=== PATIENT | female | born 1965 | race Hispanic/Latino ===

== ENCOUNTER 2017-11-01 11:43 | Outpatient (CLI) | payer BC | END 2017-11-01 11:44 | disposition home or self-care (01) | LOC: BICMAMMO 11:43 | PROVIDERS: ATTEND Family Medicine | DX: R10.9 Unspecified abdominal pain (principal); R07.9 Chest pain, unspecified; R10.2 Pelvic and perineal pain; R19.00 Intra-abdominal and pelvic swelling, mass and lump, unspecified site | CPT/HCPCS: 71046; 74018 ==

== ENCOUNTER 2017-11-25 15:15 | Outpatient (CLI) | payer BC | END 2017-11-25 15:16 | disposition home or self-care (01) | LOC: BICMAMMO 15:15 | PROVIDERS: ATTEND Family Medicine | DX: Z12.31 Encounter for screening mammogram for malignant neoplasm of breast (principal) | CPT/HCPCS: 77063; 77067 ==

== ENCOUNTER 2018-08-22 09:30 | Inpatient (IN) | payer BC ==
[2018-08-22 10:01] VITALS: BMI 25.4
[2018-08-23] MEDS ORDERED: CeleCOXIB 100 MG CAP ONE (06:20)
[2018-08-23] MEDS ORDERED: Gabapentin 300 MG CAP ONE (06:20)
[2018-08-23] MEDS ORDERED: Famotidine/PF 20 mg/2ml Vial ONE ×2 (06:21→06:50)
[2018-08-23] MEDS ORDERED: CEFAZOLIN 2 GM/50 ML BAG ONE (06:21)
[2018-08-23] MEDS ORDERED: Fentanyl 100 MCG/2 ML VIAL ONE ×2 (06:50)
[2018-08-23] MEDS ORDERED: Midazolam HCl 2 mg/2 ml Vial ONE (07:13)
[2018-08-23] MEDS ORDERED: Promethazine HCl 25 MG/ML VIAL SLOW IVP PRN (08:28)
[2018-08-23] MEDS ORDERED: Meperidine HCl/PF 25 MG/ML VIAL SLOW IVP PRN (08:28)
[2018-08-23] MEDS ORDERED: HYDROmorphone 2 MG/ML VIAL SLOW IVP PRN (08:28)
[2018-08-23] MEDS ORDERED: Promethazine HCl 25 MG/ML VIAL IM PRN ×2 (08:28→12:53)
[2018-08-23] MEDS ORDERED: Bupivacaine/Epinephrine 0.25% 30 ML VIAL ONE (09:13)
--- NOTE | 2018-08-23 10:21 | PDOC.OP ---
Operative Note - Operative Note Operative Note: Immediate Post Op Note Preop Dx: large fibroid uterus, pain Postop Dx: same Surgeon: Mirza Assist: Vivek Richardson Procedure: JOLIE BSO, On Q Pump placement EBl:250ml Findings: Large fibroid uterus, to above umbilicus, normal tubes and ovaries No complications To PACU for recovery.
[2018-08-23] MEDS ORDERED: Ropivacaine 0.2% 550 ML 750 ML NERVE BLCK SCH (10:30)
[2018-08-23] MEDS ORDERED: ROPIVACAINE HCL NERVE BLCK SCH (11:00)
[2018-08-23] MEDS ORDERED: ADMIXTURE FEE NERVE BLCK SCH (11:00)
[2018-08-23] MEDS ORDERED: Promethazine HCl 25 MG/ML VIAL ONE (11:44)
[2018-08-23] MEDS ORDERED: Ondansetron PF 4 MG/2 ML Vial IVP PRN (12:53)
[2018-08-23] MEDS ORDERED: Zolpidem Tartrate 5 MG TAB PO PRN (12:53)
[2018-08-23] MEDS ORDERED: diphenhydrAMINE 25 MG CAP PO PRN (12:53)
[2018-08-23] MEDS ORDERED: HYDROcodone/Acetaminophen 5/325 mg Tablet PO PRN ×2 (12:53)
[2018-08-23] MEDS ORDERED: Simethicone Chewable 80 MG TAB PO PRN (12:53)
[2018-08-23] MEDS ORDERED: Morphine 2 MG/ML SYRINGE SLOW IVP PRN (12:53)
[2018-08-23] MEDS ORDERED: Bisacodyl 10 MG SUPP PR PRN (12:53)
[2018-08-23] MEDS ORDERED: Ketorolac Tromethamine 30 MG/ML VIAL IVP SCH (13:00)
--- NOTE | 2018-08-23 13:14 | OP ---
DATE OF PROCEDURE: 08/23/2018 PREOPERATIVE DIAGNOSES: 1. Large fibroid uterus. 2. Pelvic pain. POSTOPERATIVE DIAGNOSES: 1. Large fibroid uterus. 2. Pelvic pain. PROCEDURE PERFORMED: Total abdominal hysterectomy with bilateral salpingo-oophorectomy and placement of ON-Q nerve block pump. SPECIAL EFFECTS PERSON: Shira Richardson MD ANESTHESIA: GETA. ESTIMATED BLOOD LOSS: 250 mL. COMPLICATIONS: None. OPERATIVE FINDINGS: 1. Large fibroid uterus extending 3 to 4 cm above the umbilicus filling the pelvis and abdomen. 2. Normal appearing tubes and ovaries. 3. No intra-abdominal adhesive disease. 4. Surgical site hematostatic. DESCRIPTION OF PROCEDURE: The patient was taken back to the OR with IV fluids running. When she was in the OR, she was placed in the dorsal supine position and general anesthesia was obtained. Once the patient was asleep, she was placed in low dorsal lithotomy position and the vagina and the abdomen were prepped and draped in the normal fashion for hysterectomy. Surgeons were gowned and gloved. A midline vertical incision was made from above the pubic symphysis to just around the umbilicus. The skin incision was carried down through the subcutaneous tissue to the facia. Once the fascia was reached, it was incised in the midline and extended inferiorly and superiorly the length of the incision. The rectus muscles were visualized and the midline was identified. The rectus muscles were bluntly in the midline. Peritoneum was bluntly entered and stretched laterally. The uterine specimen delivered easily through the abdominal incision with the above findings noted. Bowel was packed away with moist lap. The procedure began on the patient's right side at the right IP ligament. The right IP ligament was identified, doubly clamped and cut and suture ligated. Also the ovary fell away with the uterus and the IP ligament fell away to the pelvic sidewall. Attention was turned to the round ligament. The round ligament was identified, elevated with a Shantel clamp, doubly suture ligated and transected between 2 sutures with Bovie cauterization. The round ligament was then taken down in anterior and posterior leaves towards the level of the uterine artery. The ureter was palpated and noted to fall away from the dissection site. After the round ligament was dissected, the uterine arteries were skeletonized. The bladder flap was created on the patient 's right side across the cervix with fine dissection technique. The uterine arteries on the patient's right side were then clamped, cut, and suture ligated. Good hemostasis noted of the uterine artery pedicle. The attention was then turned to the contralateral side. On the patient's left side, the ovary and IP ligament were identified, doubly clamped and cut and the IP ligament double suture ligated. The round ligament was easily identified on the patient's left side. It was doubly suture ligated and transected between the sutures. The anterior and posterior leaves of the round ligament were dissected down both anteriorly and posteriorly. Anteriorly to complete the bladder flap and posteriorly towards the uterosacral ligament. The ureter was palpable on the patient's left side as well and noted to be well away from the surgical sites. The bladder flap was then completed and the bladder was dissected gently away from the cervix and future vaginal cuff site. Uterine arteries were skeletonized on the patient's left side. Uterine artery was doubly clamped, cut, suture ligated with good hemostasis noted. After the blood supply was taken down bilaterally, the cervix was easily palpated and the large uterine specimen was amputated off the cervix. The specimen of the uterus, tubes, and ovaries were handed off, to be sent for pathology. The cervical stump remained. The cervical stump was dissected down towards the vaginal mucosa using a series of straight Ferdinand clamps and suture ligation. After the cervix was dissected down towards the vagina, two Ferdinand clamps were placed just below the cervix and the cervix was amputated and removed. The vaginal cuff was then closed with a series of Vicryl suture. After the cuff was noted to be hemostatic, the paracolic gutters , cul-de-sac, and surgical sites were copiously irrigated, dried, any small areas of bleeding along the peritoneal edges were controlled with Bovie cauterization. All the surgical pedicles were inspected with no bleeding noted. The vaginal cuff was oversewn better incorporating the posterior peritoneal edge into the cuff. Hemostasis was noted after this was completed. The bladder flap dissection was irrigated and dried. It was inspected and a small area of serosal bleeding was controlled with an interrupted Vicryl suture. All instruments and sponges were then removed from the abdomen. The initial count was correct. The muscle, belly, and fascia were inspected with no areas of bleeding noted. The peritoneum was then reapproximated with plain gut sutures. Two ON-Q catheter tips were then directed through the skin and laid between the rectus fascia and rectus muscles. After these catheter tips were placed, the rectus fascia was reapproximated with PDS suture in a running fashion beginning superiorly and ending inferiorly. After the fascia was closed, the subcutaneous tissue was irrigated and dried. Any small areas of bleeding were controlled with Bovie cauterization. The anatomy around the umbilicus and incision were restored by reapproximating the subcutaneous tissue with plain gut suture. The skin was then reapproximated with sterile almita. The ON-Q catheter tips were then threaded through the introducers. The catheter tips were primed with local anesthesia. The incision was then clean, dry, and pressure dressing was applied. The patient was then extubated and taken to the recovery room in good condition. Job ID: [id number] [facility]
[2018-08-23] MEDS: Ketorolac Tromethamine 30 MG/ML VIAL IVP SCH (17:14)
[2018-08-23] MEDS: Sodium Chloride 0.9% 1,000 ML IV SCH (20:15)
[2018-08-23] MEDS ORDERED: Lidocaine 1% PF 5 ML VIAL ONE (21:38)
[2018-08-23] MEDS ORDERED: Ketorolac Tromethamine 30 MG/ML VIAL ONE (21:38)
[2018-08-23] MEDS ORDERED: Glycopyrrolate 0.2 MG/ML 5 ML SYRINGE ONE (21:38)
[2018-08-23] MEDS ORDERED: Dexamethasone 20 MG/5 ML VIAL ONE (21:38)
[2018-08-23] MEDS ORDERED: Ondansetron PF 4 MG/2 ML Vial ONE (21:38)
[2018-08-23] MEDS ORDERED: PROPOFOL 200 MG/20 ML VIAL ONE (21:38)
[2018-08-23] MEDS ORDERED: ePHEDrine/0.9% NaCl/PF SYRINGE 50 mg/10 ml ONE (21:38)
[2018-08-24] MEDS: Ketorolac Tromethamine 30 MG/ML VIAL IVP SCH ×3 (00:13→13:40)
[2018-08-24] MEDS: Sodium Chloride 0.9% 1,000 ML IV SCH ×3 (04:42→21:39)
[2018-08-24] MEDS ORDERED: Sodium Chloride 0.9% 10 ML ONE (05:24)
[2018-08-24 07:54] LABS: Hemoglobin 9.1 g/dL (12.0-16.0); Mean Corpuscular HGB CONC 33.8 g/dL (32.0-36.0); Mean Corpuscular Volume 94.8 fL (78.0-98.0); Mean Platelet Volume 8.5 fL (7.4-10.4); Platelet Count 156 thou/uL (130-400); RBC Distribution Width 11.1 % (11.5-14.5); Red Blood Cell (RBC) Count 2.86 mill/uL (4.20-5.40)
--- NOTE | 2018-08-24 08:11 | PDOC.EVN ---
Event Note - Event Note Event Note: POD#1 SP JOLIE BSO, Large fibroid uterus S: doing great, reports minimal to no pain, no nausea, no hot flashes O: VS WNL, T 99 UOP 1300ml Gen: NAD A and O Chest: nonlabored breathing Abd: flat, non distended, incision CDI, NTTP [place]: dry A/P: POD#1 sp JOLIE/BSO w midline vertical incision and placement of OnQ pump. Pain very well controlled, asx anemia noted. Plan for likely DC tomorrow after post op goals met.
[2018-08-24] MEDS ORDERED: Ferrous Sulfate 325 MG TAB PO SCH (09:00)
[2018-08-24] MEDS: Ibuprofen 800 MG TAB PO SCH ×2 (14:17→21:37)
[2018-08-25] MEDS: Sodium Chloride 0.9% 1,000 ML IV SCH (05:15)
[2018-08-25] MEDS: Ibuprofen 800 MG TAB PO SCH (06:15)
[2018-08-25 08:08] VITALS: BP 113/59; TEMP 98.5
--- NOTE | 2018-08-25 08:53 | PDOC.EVN ---
Event Note - Event Note Event Note: POD#2 S: min discomfort, ambulating in the hallways. Alexis regular diet, passing gas, voiding well. O: VSWNL NAD A and O nonlabored breathing vertical incision CDI, almita in, port sites for on Q dressed, no distention, NTTP no edema leela dry path, 2222gm, benign report A/P: POD #2 sp JOLIE BSO and OnQ placement. Doing well, goals met. Discussed removing OnQ port caths at home Wednesday, staple removal at [facility] Wed and FU visits with me scheduled.
--- NOTE | 2018-08-25 15:48 | DIS ---
DATE OF ADMISSION: 08/23/2018 DATE OF DISCHARGE: 08/25/2018 ADMISSION DIAGNOSES: Planned total abdominal hysterectomy with bilateral salpingo-oophorectomy and ON-Q placement pump for large fibroid uterus. DISCHARGE DIAGNOSES: Planned total abdominal hysterectomy with bilateral salpingo-oophorectomy and ON-Q placement pump for large fibroid uterus, status post hysterectomy and bilateral salpingo-oophorectomy. HOSPITAL COURSE: Ms. Chrystal Banerjee was admitted on 08/23/2018 for planned total abdominal hysterectomy and bilateral salpingo-oophorectomy for large fibroid uterus, abdominal pain, and menorrhagia. The patient underwent the aforementioned procedure without complication. By postoperative day #2, she was ambulating in the hallways, tolerating a regular diet, passing gas, voiding without difficulty and had minimal pain. The patient had no vaginal bleeding. She had no concerns at the time of discharge. She discharged home in good condition with prescriptions for ibuprofen 800 mg and [place] 5/325 mg as needed for pain, called to the pharmacy. She has instructions to follow up in our office on August 31, for staple removal. She also has been instructed on the removal and discontinuation of her ON-Q pump on Wednesday or Wednesday, and her family has been taught as well. The patient's questions had been answered and she agreed to discharge home later today. Job ID: [id number]
[2018-08-28] MEDS ORDERED: Ibuprofen 800 MG TAB PO SCH (22:00)
== END 2018-08-25 10:25 | disposition home or self-care (01) | DRG 743 ==
LOC: SURG A 08-23 06:05 → 3SE 08-23 12:53
PROVIDERS: ADMIT Obstetrics & Gynecology; ATTEND Obstetrics & Gynecology
PROC: 0UT90ZZ Resection of Uterus, Open Approach (ICD-10-PCS; principal; 2018-08-23)
PROC: 0UT20ZZ Resection of Bilateral Ovaries, Open Approach (ICD-10-PCS; 2018-08-23)
PROC: 0UT70ZZ Resection of Bilateral Fallopian Tubes, Open Approach (ICD-10-PCS; 2018-08-23)
DX: D25.1 Intramural leiomyoma of uterus (principal); N95.0 Postmenopausal bleeding; R10.2 Pelvic and perineal pain
CPT/HCPCS: 36415; 85027; 88307; A4306; J0131; J1100; J1885; J2001; J2250; J2405; J2550; J2704; J2795; J3010; S0028

== ENCOUNTER 2019-06-09 11:44 | Emergency (ER) | payer BC ==
[2019-06-09] MEDS ORDERED: Ondansetron PF 4 MG/2 ML Vial ONE (11:53)
[2019-06-09 12:11] LABS: #Lymphocytes 0.6 thou/uL (1.20-3.40); #Monocytes 0.4 thou/uL (0.11-0.59); #Neutrophils 13.3 thou/uL (1.40-6.50); %Basophils 0.1 % (0.0-1.0); %Eosinophils 0.3 % (0.0-10.0); %Monocytes 2.4 % (0.0-10.0); %Neutrophils 93.2 % (42.0-75.0); Hemoglobin 13.7 g/dL (12.0-16.0); Mean Corpuscular HGB CONC 34.3 g/dL (32.0-36.0); Mean Corpuscular Hemoglobin 31.4 pg (27.0-31.0); Mean Corpuscular Volume 91.5 fL (78.0-98.0); Mean Platelet Volume 8.1 fL (7.4-10.4); Platelet Count 240 thou/uL (130-400); RBC Distribution Width 10.8 % (11.5-14.5); Red Blood Cell (RBC) Count 4.36 mill/uL (4.20-5.40); White Blood Cell (WBC) Count 14.2 thou/uL (4.8-10.8)
[2019-06-09 12:35] LABS: ALT (SGPT) 21 U/L (8-55); AST (SGOT) 19 U/L (5-34); Albumin 4.3 g/dL (3.5-5.0); Alkaline Phosphatase 98 U/L (40-110); Anion Gap 12 mmol/L (10-20); BUN (Urea Nitrogen) 24 mg/dL (9.8-20.1); Bilirubin, Total 1.1 mg/dL (0.2-1.2); Calc. Creatinine Clearance 0 mL/min (70-130); Calcium 9.2 mg/dL (7.8-10.44); Carbon Dioxide 24 mmol/L (22-29); Chloride 106 mmol/L (98-107); Estimated GFR-MDRD 85; Globulin 3.6 g/dL (2.4-3.5); Glucose 125 mg/dL (70-105); Potassium 3.7 mmol/L (3.5-5.1); Protein, Total 7.9 g/dL (6.0-8.3); Sodium 138 mmol/L (136-145)
--- NOTE | 2019-06-09 12:49 | RAD ---
RADIOGRAPH CHEST 1 VIEW: DATE: 06/09/2019 HISTORY: 53-year-old female with mid back pain, nausea, and fatigue FINDINGS: The thoracic aorta is tortuous and ectatic. There is no evidence of airspace density, pulmonary edema , or pneumothorax. The lateral costophrenic angles are not effaced. IMPRESSION: 1) No acute pulmonary findings. 2) ectasia of thoracic aorta.
== END 2019-06-09 13:41 | disposition home or self-care (01) ==
LOC: ERS 11:44
DX: D72.829 Elevated white blood cell count, unspecified (principal); R11.0 Nausea; K04.7 Periapical abscess without sinus; D64.9 Anemia, unspecified; Z79.899 Other long term (current) drug therapy
CPT/HCPCS: 71045; 80053; 84484; 85025; 93005; 96361; 96374; J2405